=== PATIENT | female | born 1945 | race Caucasian/White ===

== ENCOUNTER 2021-06-14 17:33 | Emergency (ER) | payer OTHER ==
[~2021-06-14] VITALS: Ht 160 cm; Wt 62.1 kg
--- NOTE | 2021-06-14 18:01 | NUR ---
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 L greater toe abrasion. UTD w/ tetanus shot. PT AAOX4, VSS. RR EVEN & UNLABORED. DENIES SOB, DIZZINESS, N/V AT THIS TIME. AWAITING EVAL BY ERMD/CONE PICKER. WILL CONT TO MONITOR.
--- NOTE | 2021-06-14 19:50 | NUR ---
INFORMED OF PT HYPERTENSION. PER PATIENT SHE HAS BEEN TAKING LISINIPRIL PRESCRIBED AND SYSTOLIC BP IS IN THE 190S BASELINE. MADE AWARE.
[2021-06-14] MEDS ORDERED: IOHEXOL-300 100 ML VIAL IV ONE (19:56)
[2021-06-14] MEDS ORDERED: IV NS 0.9% 250 ML IV ONE (19:57)
[2021-06-14] MEDS ORDERED: ONDANSETRON HCL/PF 4 MG/2 ML VIAL IV ONE (20:00)
[2021-06-14] MEDS ORDERED: MORPHINE SULFATE INJ 2 MG/ML DISP.SYRIN IV ONE (20:00)
[2021-06-14 20:21] LABS: BASOPHILS # (AUTO) 0.1 K/uL (0.0-0.2); BASOPHILS % (AUTO) 1.5 % (0.0-2.0); EOSINOPHILS % (AUTO) 0.7 % (0.0-6.0); HEMATOCRIT 35 % (33-45); HEMOGLOBIN 11.8 g/dL (11.5-14.8); LYMPHOCYTES # (AUTO) 1.8 K/uL (0.8-4.8); LYMPHOCYTES % (AUTO) 25.7 % (20.0-44.0); MEAN CORPUSCULAR HGB CONC 34 g/dl (31.0-36.0); MEAN CORPUSCULAR VOLUME 98 fL (82-100); MONOCYTES # (AUTO) 0.5 K/uL (0.1-1.30); MONOCYTES % (AUTO) 7.6 % (2.0-12.0); NEUTROPHILS # (AUTO) 4.5 K/uL (1.8-8.9); NEUTROPHILS % (AUTO) 64.5 % (43.0-81.0); PLATELET COUNT (AUTO) 100 K/uL (150-450); RED BLOOD CELL COUNT(AUTO) 3.58 MIL/uL (4.0-5.2); WHITE BLOOD COUNT (AUTO) 6.9 K/uL (4.3-11.0)
[2021-06-14 20:35] LABS: CALCIUM, SERUM 8.5 mg/dL (8.5-10.1); CREATININE 0.9 mg/dL (0.6-1.3); POTASSIUM 3.5 mmol/L (3.5-5.1)
[2021-06-14] MEDS ORDERED: ACETAMINOPHEN ES 500 MG TABLET ONE (20:47)
[2021-06-14] MEDS ORDERED: ONDANSETRON HCL/PF 4 MG/2 ML VIAL ONE (20:47)
[2021-06-14] MEDS ORDERED: ACETAMINOPHEN ES 500 MG TABLET PO ONE (21:00)
--- NOTE | 2021-06-14 21:17 | NUR ---
PT TAKEN TO AND RETURNED FROM CT
--- NOTE | 2021-06-14 22:03 | NUR ---
COVID SWAB SENT TO LAB
--- NOTE | 2021-06-14 22:26 | NUR ---
TRAUMA TRANSFER FROM FAXED TO [facility] ER.
--- NOTE | 2021-06-15 00:17 | NUR ---
PT AWAKE AND ALERT BREATHING EVEN AND UNLABORED ALL VITAL SIGNS STABLE. WILL CONTINUE TO MONITOR.
--- NOTE | 2021-06-15 00:28 | NUR ---
FACESHEET AND CLINICALS FAXED TO [facility].
--- NOTE | 2021-06-15 00:46 | NUR ---
PT ACCEPTED TO [facility] ER BY DR LEON. # FOR REPORT [phone].
--- NOTE | 2021-06-15 00:50 | NUR ---
[facility] AVAILABLE: APA:1230P AMWEST: 1400 AMNULANZ: NO ALS AVAILABLE
--- NOTE | 2021-06-15 01:23 | NUR ---
[facility] ([place])
--- NOTE | 2021-06-15 01:34 | NUR ---
ALS TRANSPORT WILL BE HERE BETWEEN NOON AND 1300 VIA [facility].
[2021-06-15] MEDS ORDERED: diphenhydrAMINE HCL 50 MG/ML VIAL ONE (02:15)
[2021-06-15] MEDS ORDERED: diphenhydrAMINE HCL 25 MG CAPSULE ONE (02:25)
[2021-06-15] MEDS ORDERED: diphenhydrAMINE HCL 50 MG/ML VIAL IV ONE (02:30)
[2021-06-15] MEDS ORDERED: diphenhydrAMINE HCL 25 MG CAPSULE PO ONE (02:30)
--- NOTE | 2021-06-15 02:31 | NUR ---
PT AWAKE AND ALERT BREATHING EVEN AND UNLABORED ALL VSS. CALL LIGHT WITHIN REACH.
--- NOTE | 2021-06-15 03:04 | NUR ---
REPORT GIVEN TO STACEY AT [facility] ER
--- NOTE | 2021-06-15 04:12 | NUR ---
PATIENT SLEEPING COMFORTABLY BREATHING EVEN AND UNLABORED CALL LIGHT WITHIN REACH. ALL VITAL SIGNS STABLE. WILL CONTINUE TO MONITOR.
--- NOTE | 2021-06-15 07:38 | NUR ---
PT AWAKE AND ALERT RESTING COMOFORTABLY BREATHING EVEN AND UNLABORED. ALL VSS. REPORT GIVEN FOR MELE.
[2021-06-15] MEDS ORDERED: LISINOPRIL (10MG) 10 MG TABLET PO SCH (09:00)
[2021-06-15] MEDS ORDERED: ACETAMINOPHEN ES 500 MG TABLET PO ONE (09:00)
[2021-06-15 09:25] LABS: BASOPHILS % (AUTO) 0.5 % (0.0-2.0); EOSINOPHILS % (AUTO) 0.6 % (0.0-6.0); HEMATOCRIT 35 % (33-45); HEMOGLOBIN 11.9 g/dL (11.5-14.8); LYMPHOCYTES # (AUTO) 1.6 K/uL (0.8-4.8); LYMPHOCYTES % (AUTO) 21.1 % (20.0-44.0); MEAN CORPUSCULAR HGB CONC 34 g/dl (31.0-36.0); MEAN CORPUSCULAR VOLUME 98 fL (82-100); MONOCYTES # (AUTO) 0.7 K/uL (0.1-1.30); MONOCYTES % (AUTO) 8.7 % (2.0-12.0); NEUTROPHILS # (AUTO) 5.4 K/uL (1.8-8.9); NEUTROPHILS % (AUTO) 69.1 % (43.0-81.0); PLATELET COUNT (AUTO) 100 K/uL (150-450); RED BLOOD CELL COUNT(AUTO) 3.62 MIL/uL (4.0-5.2); WHITE BLOOD COUNT (AUTO) 7.8 K/uL (4.3-11.0)
[2021-06-15] MEDS ORDERED: ACETAMINOPHEN ES 500 MG TABLET ONE (09:29)
--- NOTE | 2021-06-15 10:10 | NUR ---
CALLED [facility] FOR TRANSPORT TO [facility] ER. ETA 1 HOUR.
--- NOTE | 2021-06-15 10:40 | NUR ---
REPORT GIVEN TO NEETA FROM [facility] ER
--- NOTE | 2021-06-15 10:51 | NUR ---
REPORT GIVEN TO AMBULANCE STAFF
--- NOTE | 2021-06-15 11:40 | NUR ---
THE PATIENT IS TRANSFERED TO [facility] IN STABLE CONDITION VIA [facility]ED TRANSPO
[2021-06-15 11:41] VITALS: BP 167/64
== END 2021-06-15 11:41 | disposition short-term general hospital (02) ==
LOC: ER 17:52
DX: S22.42XA Multiple fractures of ribs, left side, initial encounter for closed fracture (principal); S62.615A Displaced fracture of proximal phalanx of left ring finger, initial encounter for closed fracture; W10.8XXA Fall (on) (from) other stairs and steps, initial encounter; Y92.096 Garden or yard of other non-institutional residence as the place of occurrence of the external cause; C50.911 Malignant neoplasm of unspecified site of right female breast; Z79.818 Long term (current) use of other agents affecting estrogen receptors and estrogen levels; Z90.11 Acquired absence of right breast and nipple; Z91.040 Latex allergy status; Z85.51 Personal history of malignant neoplasm of bladder; I10 Essential (primary) hypertension; S91.101A Unspecified open wound of right great toe without damage to nail, initial encounter; M25.561 Pain in right knee; D69.6 Thrombocytopenia, unspecified; Z20.822 Contact with and (suspected) exposure to COVID-19; E11.9 Type 2 diabetes mellitus without complications
CPT/HCPCS: 36415 ×2; 70450; 71045; 71100; 73130; 73140; 73564; 73630; 74177; 80048; 82962; 84484; 85025 ×2; 85730; 87426; 93005; 96374; 99285; C9803; J2405; J7050; Q0163; Q9967; J1200